=== PATIENT | female | born 1950 | race Caucasian/White ===

== ENCOUNTER 2024-05-12 14:03 | Outpatient (CLI) | payer OTHER, SELFPAY ==
--- NOTE | 2024-05-12 14:30 | CRLHL7_ITS ---
For Patients: As a result of the Century Cures Act, medical imaging exams and procedure reports are released immediately into your electronic medical record. You may view this report before your referring provider. If you have questions, please contact your health care provider. Indication: Chronic neck pain. Technique: Noncontrast sagittal T1, T2, STIR and axial T2 spin echo and GRE sequences are provided. Comparison: Cervical radiographs 04/19/2024 Findings: There is reversal of normal cervical lordosis. 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 Degenerative grade 1 anterolisthesis at C3-4 and grade 2 anterolisthesis at C4-5. No fracture. No prevertebral edema. Increased STIR signal in the left C2-3 pars interarticularis. The craniocervical junction is unremarkable. Degenerative changes at the anterior atlantoaxial articulation. The pineal gland and cerebellar tonsils are unremarkable. No abnormal intramedullary spinal cord signal. Retropharyngeal course of the internal carotid arteries. C1-2: No spinal canal stenosis C2-3: Uncovertebral joint hypertrophy and facet arthrosis. Moderate left and mild right neural foraminal narrowing. No spinal canal stenosis. C3-4: Grade 1 anterolisthesis with uncovering of the disc. Advanced right and moderate left facet arthrosis with ligamentum flavum buckling. Moderate spinal canal stenosis. Uncovertebral joint hypertrophy. Moderate bilateral neural foramen narrowing. C4-5: Grade 2 anterolisthesis with uncovering of the disc. Advanced right facet arthrosis and uncovertebral joint hypertrophy. Severe spinal canal stenosis. No left neural foramen narrowing. Severe right neural foramen narrowing with impingement of the right C5 nerve roots. C5-6: No spinal canal stenosis or neural foramen narrowing. C6-7: Right paracentral disc osteophyte complex results in mild spinal canal stenosis. Mild flattening of the ventral cord surface without cord contact. Uncovertebral joint hypertrophy results in moderate right and mild left neural foramen narrowing. C7-T1: Disc osteophyte complex and facet arthrosis. Mild spinal canal stenosis. Moderate neural foramina narrowing bilaterally. T1-2: Severe disc height loss. Disc osteophyte complex and facet arthrosis results in [id number] spinal canal narrowing. Severe left neural foramen narrowing with impingement of the left T1 nerve roots. Moderate right neural foramen stenosis. Impression: 1. Multilevel cervical spondylosis. Reversal of normal cervical lordotic curvature and degenerative anterolisthesis at C3-4 and C4-5. 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 2. Severe spinal canal stenosis at C4-5, moderate spinal canal stenosis at C3-4, and [id number] spinal canal stenosis at T1-2. 3. Severe right neural foramen narrowing at C4-5, moderate right neural foraminal narrowing at C6-7, moderate neural foramen narrowing at C7-T1 bilaterally, and severe left neural foraminal narrowing at T1-T2. 4. Increased STIR signal in the left C2-3 pars interarticularis likely due to stress reaction and/or facet arthrosis and acute inflammation. 5. No abnormal intramedullary spinal cord signal. Dictated by Germán Nicholson MD @ 05/13/2024 9:23:53 PM (Electronically Signed)
== END 2024-05-12 14:04 | disposition home or self-care (01) ==
LOC: MRI 14:04
PROVIDERS: PCP Internal Medicine; Visit Provider Family Medicine
DX: M54.2 Cervicalgia (principal); M47.812 Spondylosis without myelopathy or radiculopathy, cervical region; M48.02 Spinal stenosis, cervical region
CPT/HCPCS: 72141

== ENCOUNTER 2024-05-27 13:00 | Outpatient (RCR) | payer OTHER, SELFPAY ==
--- NOTE | 2024-05-04 17:46 | PT.OPEX ---
PT [place] [facility] PT [facility] Outpatient Eval Start: 05/04/24 13:12 Freq: Status: Active Protocol: Document 05/04/24 13:12 ELAN (Rec: 05/04/24 17:42 ELAN [id number]) E-signed By Roopa Brantley DPT Physical Therapy Outpatient Evaluation Insurance Information Recert Due Date 08/02/24 Insurance Name [employer],Medicare B Medical Diagnosis bilateral greater trochanteric bursitis Treating Diagnosis chronic bilateral hip pain, core/hip/glut weakness, limping/antalgic gait, limited tolerance for extended sitting/standing/walking/ stairs Subjective Subjective Patient reports chronic bilateral hip pain for the past 20-25 years. States she has been getting bilateral hip and knee cortisone injections for years as that helps with her pain/sx management. She had bilateral TKAs about 8-10 years ago. Reports having 2 LB surgeries with lower lumbar fusions about 3 years ago and 10 years ago. Patient also reports having a fall at her house this past Dec and dealing with neck pain and headaches since. States she was on oral steroids recently for her neck pain - that was helpful all her aches/pains but she is done with that dose pack now. She has an order for neck pain and has PT for this later this week. Focus this session was on bilateral hip pain. Patient localizes this pain to bilateral lateral hips, reports hx of bursitis. She has 3 upcoming vacations planned and is planning to have injections to her hips and neck to get pain/sx relief for traveling. She is using tylenol for her hip pain. Hasn't been using ice/heat - forgets to try it. Sleep is interrupted by pain, mostly from the neck pain. Patient does not use an AD - states she is not interested in using an AD or walking sticks. She does have walking sticks and admits that they were maybe helpful when she did try them in the past but doesn't like to use them, wants to keep her independence. Bilateral hip pain rated 7/10, this has been pretty constant pain even at rest, increases some with standing/walking but also with extended sitting. Also reports going to the chiropractor for adjustments, states that she does full body treatments. Date of Last Physician Visit 04/06/24 Current Work Status Retired Assessment Assessment/Impression Patient is a 73 year old female with chronic bilateral hip pain, core/hip/glut weakness, limping/antalgic gait, limited tolerance for extended sitting/standing/ walking/stairs. Bilateral hip pain rated 7/10. Patient is tight, tender, reaction with palpation proximal ITB and lateral hips bilaterally. She reports some increased pain with extended sitting, standing, walking but that pain is most constant at 7/10. Gait is slow, limping, antalgic without an AD. Patient with core/hip/glut weakness with hx of chronic bilateral hip pain, bilateral hip bursitis, and chronic LBP issues including 2 fusion surgeries. Patient is resistant to using a cane or walking stick(s) despite noticing benefit with walking sticks in the past. She is open to bringing them with on her vacations to maybe use after brief discussion. Bilateral hip ROM limited in all directions with general tightness, stiffness, and pain . Scour test positive bilateral hips. Patient is late to PT appt today and reports having a bad headache so session is somewhat limited and shorter today. Patient teary at times during the session because of her headache. Able to initiate some exercises this session with focus on core/hip/glut/LE mobility and strengthening. Tolerated well. Patient reports the exercises felt good. She admits having trouble with follow through in doing a home exercise program but feels motivated at this time with her upcoming vacations. Patient would benefit from skilled PT for pain/sx management, improved bilateral hip ROM, core/hip/ glut/LE strengthening, improved gait, and establishment of HEP. Plan of Care Rehabilitation Potential Good Physical Therapy Goals 1. Decrease bilateral lateral hip/thigh pain to less than/ equal to 4/10 with daily activities and with the progression of PT activities over the next 6-8 weeks. 2. Improve bilateral hip ROM over the next 6-8 weeks for improved gait mechanics, return to transfers with ease, and improved tolerance for extended sitting /standing/walking. 3. Improve bilateral hip/glut /LE/core strength over the next 10-12 weeks for return to transfers with ease, improved gait without AD, and extended sitting/standing/walking with better management of her chronic bilateral hip pain. 4. Patient will be I with HEP within 12 weeks for progression toward above goals, ongoing self management of pain/sx, ongoing self improvements in bilateral hip ROM/mobility/strength, and for return to daily activities/travel activities including sitting/standing/ walking with better management of her chronic hip pain. Coordination/Communication With Referral Source Treatment Plan/Direct Interventions Manual Therapy,Therapeutic Exercises Frequency/Duration 1x/week Patient Will Be Discharged From Therapy Completion of LTG(s),Skills Plateau,Independent w/HEP, Independently Progressing Evaluation Billing Untimed Code Treatment Minutes 24 Complexity Moderate Certification Information Initial Certification Date 05/04/24 Ending Certification Date 08/02/24 Provider Signature Required Yes Provider Signature Shows Agreement With POC & Medical Necessity Physician NPI Number Write NPI# Here Physician Comment/Change : Physician Signature & Date Requested Please Sign/Date Here
== END 2024-09-24 23:59 | disposition home or self-care (01) ==
PROVIDERS: PCP Internal Medicine; Referring Provider Family Medicine; Visit Provider Orthopaedic Surgery Sports Medicine
DX: M70.61 Trochanteric bursitis, right hip (principal); M70.62 Trochanteric bursitis, left hip; M47.812 Spondylosis without myelopathy or radiculopathy, cervical region; M54.2 Cervicalgia; G89.29 Other chronic pain; M25.552 Pain in left hip; M25.551 Pain in right hip; R29.898 Other symptoms and signs involving the musculoskeletal system; M62.81 Muscle weakness (generalized); R26.89 Other abnormalities of gait and mobility; Z51.89 Encounter for other specified aftercare
CPT/HCPCS: 97110; 97140; 97162; 97535